=== PATIENT | female | born 1965 | race Caucasian/White ===

== ENCOUNTER 2017-09-06 18:12 | Emergency (ER) | payer OTHER, BC ==
[~2017-09-06] VITALS: Ht 162.6 cm; Wt 56.0 kg
[2017-09-06 18:18] VITALS: BP 159/82
[2017-09-06] MEDS ORDERED: HYDROcodone/APAP 5/325 TABLET ONE (20:20)
[2017-09-06] MEDS ORDERED: HYDROcodone/APAP 5/325 TABLET PO ONE (20:30)
== END 2017-09-06 20:33 | disposition home or self-care (01) ==
LOC: ED 20:27
DX: S06.0X0A Concussion without loss of consciousness, initial encounter (principal); R07.9 Chest pain, unspecified; F32.9 Major depressive disorder, single episode, unspecified; V43.52XA Car driver injured in collision with other type car in traffic accident, initial encounter; Y93.89 Activity, other specified; Y92.488 Other paved roadways as the place of occurrence of the external cause; Y99.8 Other external cause status
CPT/HCPCS: 71020; 93005; 99284

== ENCOUNTER 2020-09-06 12:18 | Emergency (ER) | payer BC, OTHER ==
[~2020-09-06] VITALS: Ht 162.6 cm; Wt 50.0 kg
[2020-09-06 12:26] VITALS: BP 150/84
[2020-09-06] MEDS ORDERED: DIPH,PERTUSS(ACELL),TET VAC/PF 0.5 ML IM-VACC ONE ×2 (12:30→13:43)
[2020-09-06] MEDS ORDERED: LIDOCAINE-MPF 1%, 5ML INFIL ONE (12:30)
[2020-09-06] MEDS ORDERED: LIDOCAINE-MPF 1%, 5ML ONE (13:21)
[2020-09-06] MEDS ORDERED: NEOSPORIN OINT. PKT 1 PACKET ONE (13:50)
== END 2020-09-06 13:59 | disposition home or self-care (01) ==
LOC: ED 13:41
DX: S61.411A Laceration without foreign body of right hand, initial encounter (principal); W26.8XXA Contact with other sharp object(s), not elsewhere classified, initial encounter; Y93.89 Activity, other specified; Y92.89 Other specified places as the place of occurrence of the external cause; Y99.0 Civilian activity done for income or pay
CPT/HCPCS: 12042; 90471; 90715; 99284